=== PATIENT | male | born 1940 | race Caucasian/White ===

== ENCOUNTER 2016-07-31 23:13 | Emergency (ER) | payer MEDICARE ==
[2016-08-01 01:01] LABS: HEMOGLOBIN 15.2 gm/dl (14.0-17.5); RED BLOOD COUNT 4.71 M/UL (4.20-5.50); WHITE BLOOD COUNT 8.6 K/UL (4.5-11.0)
[2016-08-01 01:23] LABS: BUN/CREATININE RATIO 21 (0-10)
== END 2016-08-01 01:59 | disposition home or self-care (01) ==
LOC: ER1 23:13
PROVIDERS: Physician Assistant
DX: K52.9 Noninfective gastroenteritis and colitis, unspecified (principal); I48.91 Unspecified atrial fibrillation; I10 Essential (primary) hypertension; Z88.6 Allergy status to analgesic agent; Z88.8 Allergy status to other drugs, medicaments and biological substances; Z79.01 Long term (current) use of anticoagulants
CPT/HCPCS: 36415; 71010; 80053; 82550; 82553; 83605; 83690; 83874; 84484; 85025; 93005; 96361; 96374; 99284; J2405

== ENCOUNTER → 2016-09-04 | Outpatient (CLI) | payer MEDICARE | LOC: EDBD 10:45 → EXRD 10:45 | DX: M54.5 Low back pain (principal); M54.16 Radiculopathy, lumbar region; M62.838 Other muscle spasm; M47.816 Spondylosis without myelopathy or radiculopathy, lumbar region | CPT/HCPCS: 72100 ==

== ENCOUNTER → 2016-09-23 | Outpatient (CLI) | payer MEDICARE | LOC: EXRD 13:00 → EDBD 13:18 → EXRD 13:18 | DX: Z13.820 Encounter for screening for osteoporosis (principal); M81.0 Age-related osteoporosis without current pathological fracture | CPT/HCPCS: 77080 ==